=== PATIENT | female | born 1965 | race Caucasian/White ===

== ENCOUNTER 2017-11-12 23:21 | Emergency (ER) | payer MEDICAID ==
[~2017-11-12] VITALS: Ht 162.6 cm; Wt 50.0 kg
[~2017-11-12 23:21] MED LIST: ADV50250 IH; ASTNS; CLON-527 PO; ESCI20TA29 PO; ESTR1TAB23 PO; LEVA15HF4 IH; LOSA1TAB39 PO; NORCO10T PO; PANT40TA39 PO; VALA-7 PO
[2017-11-13] MEDS: normal saline 1000ML IV soln IVB ONE (00:43)
[2017-11-13] MEDS: ketorolac trometh. 30mg/ml inj. IV ONE (00:47)
[2017-11-13 00:49] VITALS: BP 149/96
[2017-11-13] MEDS: SUMAtriptan succ. 6 MG/0.5ml vial SQ ONE (00:57)
== END 2017-11-13 01:31 | disposition home or self-care (01) ==
LOC: ER 23:22
DX: G43.909 Migraine, unspecified, not intractable, without status migrainosus (principal); I10 Essential (primary) hypertension; K21.9 Gastro-esophageal reflux disease without esophagitis; G89.29 Other chronic pain; F41.9 Anxiety disorder, unspecified; F31.9 Bipolar disorder, unspecified; Z88.0 Allergy status to penicillin; Z88.2 Allergy status to sulfonamides; Z88.8 Allergy status to other drugs, medicaments and biological substances; Z88.4 Allergy status to anesthetic agent; Z88.1 Allergy status to other antibiotic agents; Z91.040 Latex allergy status
CPT/HCPCS: 96361; 96372; 96374; 99284; J1885; J3030; J7030

== ENCOUNTER 2017-11-18 12:35 | Emergency (ER) | payer MEDICAID ==
[2017-11-18 14:22] VITALS: BP 124/74
[2017-11-18] MEDS ORDERED: CLON1TAB4 PO (22:57)
[2017-11-18] MEDS ORDERED: MONT10TA24 PO (23:05)
[2017-11-18] MEDS ORDERED: ACYC-202 PO (23:05)
[2017-11-19] MEDS ORDERED: CLON1TAB4 PO (01:29)
== END 2017-11-18 14:25 | disposition home or self-care (01) ==
LOC: ER 12:35
DX: G43.909 Migraine, unspecified, not intractable, without status migrainosus (principal); I10 Essential (primary) hypertension; K21.9 Gastro-esophageal reflux disease without esophagitis; F17.200 Nicotine dependence, unspecified, uncomplicated; Z88.8 Allergy status to other drugs, medicaments and biological substances; Z88.6 Allergy status to analgesic agent; Z88.1 Allergy status to other antibiotic agents; Z91.040 Latex allergy status; Z88.0 Allergy status to penicillin
CPT/HCPCS: 36415; 71045; 80329; 99285

== ENCOUNTER 2017-11-18 21:12 | Emergency (ER) | payer MEDICAID ==
[~2017-11-18] VITALS: Ht 162.6 cm; Wt 47.0 kg
[2017-11-18 21:43] LABS: URINE HCG NEGATIVE (NEG)
[2017-11-18 21:54] LABS: BASOPHILS % (AUTO) 0.7 % (0-1); EOSINOPHILS # (AUTO) 0.1 X10'3 (0-0.9); EOSINOPHILS % (AUTO) 1.8 % (0-6); HEMATOCRIT 40.5 % (35.0-45.0); HEMOGLOBIN 13.9 g/dl (12.0-16.0); LYMPHOCYTES # (AUTO) 2.6 X10'3 (1.1-4.8); LYMPHOCYTES % (AUTO) 48.1 % (21-51); MEAN CORPUSCULAR HEMOGLOBIN 32.2 PG (27.0-31.0); MEAN CORPUSCULAR HGB CONC 34.4 % (33.0-36.5); MEAN CORPUSCULAR VOLUME 93.7 FL (78-98); MEAN PLATELET VOLUME 7.4 FL (7.4-10.4); MONOCYTES # (AUTO) 0.5 X10'3 (0-0.9); MONOCYTES % (AUTO) 9.1 % (2-12); NEUTROPHILS # (AUTO) 2.2 X10'3 (1.8-7.7); NEUTROPHILS % (AUTO) 40.3 % (42-75); PLATELET COUNT 244 X10'3 (140-440); RED BLOOD COUNT 4.32 X10'6 (4.20-5.60); RED CELL DISTRIBUTION WIDTH 13.8 % (11.5-14.5); WHITE BLOOD COUNT 5.4 X10'3 (4.5-11.0)
[2017-11-18 21:54] LABS: URINE AMPHETAMINE SCREEN NEGATIVE (Neg); URINE BARBITUATE SCREEN NEGATIVE (Neg); URINE BENZODIAZEPINES SCREEN NEGATIVE (Neg); URINE CANNABINOID SCREEN NEGATIVE (Neg); URINE COCAINE SCREEN NEGATIVE (Neg); URINE METHADONE SCREEN NEGATIVE (Neg); URINE OPIATE SCREEN POSITIVE (Neg); URINE PHENCYCLIDINE SCREEN NEGATIVE (Neg)
[2017-11-18 22:17] LABS: ALANINE AMINOTRANSFERASE 22 U/L (12-78); ALBUMIN 4.4 G/DL (3.4-5.0); ALBUMIN/GLOBULIN RATIO 1.6 (1.1-1.5); ALKALINE PHOSPHATASE 72 IU/L (46-116); ANION GAP 7 (8-16); ASPARTATE AMINO TRANSFERASE 17 U/L (10-37); BILIRUBIN,TOTAL 0.5 MG/DL (0.1-1.0); BLOOD UREA NITROGEN 8 MG/DL (7-18); CALCIUM 8.9 MG/DL (8.5-10.1); CHLORIDE 103 MMOL/L (99-107); GLUCOSE 92 MG/DL (70-104); POTASSIUM 4.2 MMOL/L (3.5-5.1); SODIUM 139 MMOL/L (135-145); TOTAL CARBON DIOXIDE 28.9 MMOL/L (24-32); TOTAL PROTEIN 7.1 G/DL (6.4-8.2); eGFR 58 ML/MIN
[2017-11-18 22:19] LABS: ETHANOL < 0.010 GM/DL (0.0-0.010)
[2017-11-18] MEDS ORDERED: CLON1TAB4 PO (22:57)
[2017-11-18] MEDS ORDERED: ACYC-202 PO (23:05)
[2017-11-18] MEDS ORDERED: MONT10TA24 PO (23:05)
[2017-11-18] MEDS ORDERED: ibuprofen 200mg tablet PO ONE (23:15)
[2017-11-19] MEDS ORDERED: CLON1TAB4 PO (01:29)
[2017-11-19] MEDS: clonazePAM 1mg tablet PO PRN ×2 (02:53→08:58)
[2017-11-19] MEDS: HYDROcodone/acetaminophen 10/325mg tab PO PRN ×3 (06:04→17:07)
[2017-11-19] MEDS ORDERED: non-formulary drug (Fluticasone/Salmeterol* (Advair 250-50 Diskus*) 1 INH) IH SCH (08:00)
[2017-11-19] MEDS ORDERED: montelukast 10mg tablet PO SCH (08:00)
[2017-11-19] MEDS ORDERED: citalopram 20mg tablet PO SCH (08:00)
[2017-11-19] MEDS ORDERED: pantoprazole 40mg Tablet.DR PO SCH (08:00)
[2017-11-19] MEDS ORDERED: estradiol 1mg tablet PO SCH (08:00)
[2017-11-19] MEDS ORDERED: losartan 50mg tablet PO SCH (08:00)
[2017-11-19] MEDS ORDERED: HYDROchlorothiazide 25mg tablet PO SCH (08:00)
[2017-11-19 13:58] LABS: CLARITY,URINE SLIGHTLY CLOUDY (Clear); COLOR,URINE STRAW (Yellow); GLUCOSE, URINE NEGATIVE (Neg); KETONES,URINE NEGATIVE (Neg); LEUKOCYTE ESTERASE ,URINE NEGATIVE (Neg); NITRITES, URINE NEGATIVE (Neg); OCCULT BLOOD,URINE SMALL (Neg); PROTEIN,URINE NEGATIVE (Neg); UROBILINOGEN,URINE 0.2 E.U/dL (0.2-1.0)
[2017-11-19 13:59] LABS: UA COLLECTION TYPE VOIDED
[2017-11-19 14:11] LABS: BACTERIA,URINE FEW /HPF (Neg); SQUAMOUS EPITHELIAL CELL,UR MANY /LPF (FEW)
[2017-11-19 14:12] LABS: TRANSITIONAL EPI CELLS,URINE FEW /HPF; WBC,URINE 0-4 /HPF (0-4)
[2017-11-19 17:52] VITALS: BP 144/89
[2017-11-19] MEDS ORDERED: acyclovir 200 MG capsule PO SCH (21:00)
== END 2017-11-19 21:55 ==
LOC: ER 21:12
DX: R45.851 Suicidal ideations (principal); I10 Essential (primary) hypertension; K21.9 Gastro-esophageal reflux disease without esophagitis; G89.29 Other chronic pain; R51 Headache; F41.9 Anxiety disorder, unspecified; Z90.49 Acquired absence of other specified parts of digestive tract; Z90.710 Acquired absence of both cervix and uterus; Z88.2 Allergy status to sulfonamides; Z88.0 Allergy status to penicillin; Z88.1 Allergy status to other antibiotic agents; Z88.5 Allergy status to narcotic agent; Z91.040 Latex allergy status
CPT/HCPCS: 36415; 70450; 80053; 80305; 80320; 81001; 81025; 84443; 85025; 99285

== ENCOUNTER 2021-08-06 07:39 | Inpatient (IN) | payer MEDICAID ==
[2021-07-30 15:04] LABS: BASOPHILS % (AUTO) 0.5 % (0-1); EOSINOPHILS # (AUTO) 0.2 X10'3 (0-0.9); EOSINOPHILS % (AUTO) 2.7 % (0-6); LYMPHOCYTES # (AUTO) 2.7 X10'3 (1.1-4.8); LYMPHOCYTES % (AUTO) 43.5 % (21-51); MEAN CORPUSCULAR HEMOGLOBIN 31.3 PG (27.0-31.0); MEAN CORPUSCULAR HGB CONC 33.4 g/dL (33.0-36.5); MEAN CORPUSCULAR VOLUME 93.7 FL (78-98); MEAN PLATELET VOLUME 7.6 FL (7.4-10.4); MONOCYTES # (AUTO) 0.6 X10'3 (0-0.9); MONOCYTES % (AUTO) 9.9 % (2-12); NEUTROPHILS # (AUTO) 2.7 X10'3 (1.8-7.7); NEUTROPHILS % (AUTO) 43.4 % (42-75); PRE OP HEMATOCRIT 37.9 % (35.0-45.0); PRE OP HEMOGLOBIN 12.7 g/dL (12.0-16.0); PRE OP PLATELET COUNT 299 X10'3 (140-440); RED BLOOD COUNT 4.05 X10'6 (4.20-5.60); RED CELL DISTRIBUTION WIDTH 14.3 % (11.5-14.5)
[2021-07-30 15:20] LABS: ALBUMIN 3.5 G/DL (3.4-5.0); ALBUMIN/GLOBULIN RATIO 1.1 (1.1-1.5); ALKALINE PHOSPHATASE 83 IU/L (46-116); BLOOD UREA NITROGEN 15 MG/DL (7-18); BUN/CREATININE RATIO 15.3 (6.6-38.0); CALCIUM 8.4 MG/DL (8.5-10.1); CHLORIDE 103 MMOL/L (99-107); CREATININE 0.98 MG/DL (0.40-0.90); PRE OP ALT 18 U/L (30-65); PRE OP ANION GAP 5 (8-16); PRE OP AST 13 U/L (10-37); PRE OP BILIRUB, TOTAL 0.3 MG/DL (0.0-1.0); PRE OP GLUCOSE 104 MG/DL (70-104); PRE OP POTASSIUM 4.2 MMOL/L (3.4-5.1); PRE OP SODIUM 139 MMOL/L (135-145); TOTAL CARBON DIOXIDE 30.8 MMOL/L (24-32); TOTAL PROTEIN 6.8 G/DL (6.4-8.2); eGFR 58 ML/MIN
[2021-08-06] VITALS (26 sets, daily range): BP systolic 111–161; BP diastolic 70–106
[~2021-08-06] VITALS: Ht 162.6 cm; Wt 58.2 kg
[~2021-08-06 07:39] MED LIST changes: +ACYCLOVIR PO; -ADV50250 IH; -ASTNS; -ESCI20TA29 PO; +ESTR1TAB19 PO; -ESTR1TAB23 PO; +HYDR-3972 PO; -LEVA15HF4 IH; -LOSA1TAB39 PO; +LOSA25TA96 PO; +MONT10TA32 PO; -NORCO10T PO; +PANT-47 PO; -PANT40TA39 PO; +TRAZ150T78 PO; -VALA-7 PO; +VANCOMYCIN INJ 1000 MG in NORMAL SALINE 250ml IV.SOLN IV ONE; +ceFAZolin 2gm in dextrose, iso 50 ML IV ONE; +famotidine 20mg tablet PO ONE; +ringers solution, lacted 1,000 ML IV SCH; +tranexamic acid 650mg tablet PO ONE
[2021-08-06] MEDS ORDERED: ROPIVAcaine 0.5% (5mg/ml) 30ml vial ONE ×2 (09:36→10:11)
[2021-08-06] MEDS ORDERED: ketorolac trometh. 30mg/ml inj. ONE (09:36)
[2021-08-06] MEDS ORDERED: fentaNYL/PF 50MCG/1 ML 2ML syringe ONE (10:09)
[2021-08-06] MEDS ORDERED: LIDOcaine 1%/PF 5ML 10 MG/ML VIAL ONE (10:11)
[2021-08-06] MEDS ORDERED: MIDAZolam 1 MG/ML 5ML VIAL ONE (10:11)
[2021-08-06] MEDS ORDERED: propofol inj 20 ML IV ONE (10:11)
[2021-08-06] MEDS ORDERED: morphine 4 MG/ML inj SYRINge IV PRN (11:10)
[2021-08-06] MEDS ORDERED: ROPIVAcaine 0.2% (10 MG/5 ML) BOLUS INJECTION INTERSCALE PRN (11:10)
[2021-08-06] MEDS ORDERED: meperidine/PF 25mg/ml syringe IV PRN ×3 (11:10)
[2021-08-06] MEDS ORDERED: ondansetron/PF 4mg/2ml inj IV PRN ×2 (11:10→12:40)
[2021-08-06] MEDS ORDERED: morphine 2 MG/ML inj. syringe IV PRN (11:10)
[2021-08-06] MEDS ORDERED: proCHLORperazine 10 MG/2 ml inj IV PRN (11:10)
[2021-08-06] MEDS ORDERED: ringers solution, lacted 1,000 ML IV SCH (11:10)
[2021-08-06] MEDS ORDERED: ketamine 50mg/5ml syringe ONE (11:29)
[2021-08-06] MEDS ORDERED: ePHEDrine 50MG/ML INJ. ONE (11:54)
[2021-08-06] MEDS ORDERED: acetaminophen 1,000mg/100ml IV 100 ML IV ONE (11:54)
[2021-08-06] MEDS ORDERED: ondansetron/PF 4mg/2ml inj ONE (11:54)
[2021-08-06] MEDS ORDERED: dexamethasone sod phosphate 4mg/ml inj. ONE (11:54)
--- NOTE | 2021-08-06 12:20 | NUR ---
PT ARRIVED FROM OR VIA BED, DR. STRAUSS, ANESTHESIA ACCOMPANYING-REPORT GIVEN, PT WAKING UP, VSS, PIV 20G TO LEFT HAND-LR RUNNING AT 100ML/HR, SHOULDER WRAP WITH ICE TO RIGHT SHOULDER-CDI, ARM IN SLING, FINGERS NUMB AND UNABLE TO MOVE YET D/T BLOCK, CSM-INTACT +CAP REFILL , DENIES PAIN, SCDS ON
[2021-08-06] MEDS ORDERED: HYDROmorphone inj. 0.5 MG/0.5 ML DISP.SYRIN IV PRN (12:40)
[2021-08-06] MEDS ORDERED: bisacodyl 10mg suppository rectal RC PRN (12:40)
[2021-08-06] MEDS ORDERED: magnesium hydroxide 30ml (MOM) UD suspension PO PRN (12:40)
[2021-08-06] MEDS ORDERED: diphenhydrAMINE 25mg capsule PO PRN ×2 (12:40)
[2021-08-06] MEDS ORDERED: oxyCODONE IR 5mg (immed. release) tablet PO PRN ×2 (12:40)
[2021-08-06] MEDS ORDERED: acetaminophen 325mg tablet PO PRN (12:40)
[2021-08-06] MEDS: ROPIVAcaine 0.2%/PF PUMP/bolus 545 ML INTERSCALE SCH (12:59)
[2021-08-06] MEDS: clonazePAM 1mg tablet PO SCH ×2 (13:00→21:10)
[2021-08-06] MEDS: gabapentin 300mg capsule PO SCH ×2 (13:00→21:00)
[2021-08-06] MEDS: potassium cl 20mEq in 1/2 NS 1,000 ML IV SCH ×2 (13:27→21:15)
--- NOTE | 2021-08-06 13:48 | NUR ---
PT RESTING COMFORTABLY, DENIES PAIN, VSS, EATING LUNCH, ON-Q PUMP ATTACHED AT 4ML/HR PER PT REQUEST-EDUCATED ON USE, RIGHT SHOULDER DSRG-CDI, ICE IN PLACE, ARM IN SLING, CSM-INTACT, WAITING FOR BED ON FLOOR.
[2021-08-06] MEDS: acetaminophen 325mg tablet PO SCH ×2 (14:00→21:09)
--- NOTE | 2021-08-06 16:50 | NUR ---
PT HAS BEEN RESTING QUIETLY, DENIES PAIN AT SHOULDER SITE BUT FEELS STIFF ALL OVER-DOES HAVE HX OF CHRONIC PAIN, ASKED FOR ON-Q TO BE TURNED UP, INCREASED TO 8ML/HR. SHOULDER DRSG TO RIGHT SIDE-CDI, WITH POWDERPACK AND WRAP IN PLACE, CSM-INTACT, ABLE TO WIGGLE FINGERS BUT STILL DIMINISHED SENSATION FROM BLOCK, PT WAS ABLE TO GET UP TO BSC TO VOID W/O DIFFICULTY, PIV TO LEFT HAND 20G RUNNING AT 125ML/HR WITH 1/2NS WITH 20MEQ KCL PER DR ORDER, REPORT CALLED TO CAROLINE GIBBS ON SURGICAL FLOOR-ALL QUESTIONS ANSWERED, PT TAKEN WITH ALL BELONGINGS TO ROOM 340A, BED LOW AND LOCKED, GIVEN CALL LIGHT AND HOOKED UP TO MONITORS, CHART LEFT AT DESK, STAFF AWARE OF PT ARRIVAL.
--- NOTE | 2021-08-06 17:00 | NUR ---
Patient in room PAS IN 901. I have received report from DAVIS GIBBS and had the opportunity to ask questions and assume patient care.
--- NOTE | 2021-08-06 18:04 | NUR ---
contacted pharmacy at 1700 said they would send ancef up. no ancef still will let filter filler know.
[2021-08-06] MEDS: HYDROcodone/acetaminophen 10/325mg tab PO PRN (18:09)
--- NOTE | 2021-08-06 18:30 | NUR ---
Patient in room REJI 340. I have received report from MALLORIE GIBBS and had the opportunity to ask questions and assume patient care.
[2021-08-06] MEDS: ceFAZolin/D5W- 1GM premix 50 ML IV SCH (18:36)
[2021-08-06] MEDS ORDERED: vancomycin/NS 1 GM ADD-VANTAGE 250 ML IV SCH (20:00)
[2021-08-06] MEDS ORDERED: traZODone 150mg tablet PO SCH (21:00)
[2021-08-06] MEDS ORDERED: sennosides 8.6mg tablet PO SCH (21:00)
[2021-08-06] MEDS: HYDROmorphone 1 mg/ml syringe IV PRN (23:49)
[2021-08-07] VITALS: BP 151/96
[2021-08-07] MEDS: ceFAZolin/D5W- 1GM premix 50 ML IV SCH (00:35)
[2021-08-07] MEDS: acetaminophen 325mg tablet PO SCH ×2 (02:40→07:20)
[2021-08-07] MEDS: HYDROmorphone 1 mg/ml syringe IV PRN (05:08)
[2021-08-07] MEDS: potassium cl 20mEq in 1/2 NS 1,000 ML IV SCH (05:09)
[2021-08-07 05:14] LABS: BASOPHILS % (AUTO) 0.1 % (0-1); EOSINOPHILS % (AUTO) 0 % (0-6); HEMATOCRIT 30.8 % (35.0-45.0); HEMOGLOBIN 10.6 g/dl (12.0-16.0); LYMPHOCYTES # (AUTO) 1.4 X10'3 (1.1-4.8); LYMPHOCYTES % (AUTO) 12.8 % (21-51); MEAN CORPUSCULAR HEMOGLOBIN 31.8 PG (27.0-31.0); MEAN CORPUSCULAR HGB CONC 34.4 g/dL (33.0-36.5); MEAN CORPUSCULAR VOLUME 92.3 FL (78-98); MEAN PLATELET VOLUME 7.5 FL (7.4-10.4); MONOCYTES # (AUTO) 1.1 X10'3 (0-0.9); MONOCYTES % (AUTO) 9.9 % (2-12); NEUTROPHILS # (AUTO) 8.6 X10'3 (1.8-7.7); NEUTROPHILS % (AUTO) 77.2 % (42-75); PLATELET COUNT 268 X10'3 (140-440); RED BLOOD COUNT 3.34 X10'6 (4.20-5.60); RED CELL DISTRIBUTION WIDTH 14.3 % (11.5-14.5); WHITE BLOOD COUNT 11.2 X10'3 (4.5-11.0)
[2021-08-07 05:23] LABS: ANION GAP 5 (8-16); CHLORIDE 108 MMOL/L (99-107); POTASSIUM 4.6 MMOL/L (3.5-5.1); SODIUM 140 MMOL/L (135-145); TOTAL CARBON DIOXIDE 27.4 MMOL/L (24-32)
[2021-08-07 06:00] VITALS: BP 148/99
--- NOTE | 2021-08-07 06:30 | NUR ---
Problems reprioritized. Patient report given, questions answered & plan of care reviewed with MARIANNE GIBBS.
[2021-08-07] MEDS: HYDROcodone/acetaminophen 10/325mg tab PO PRN ×2 (07:26→11:46)
[2021-08-07] MEDS: gabapentin 300mg capsule PO SCH ×2 (07:26→13:02)
[2021-08-07] MEDS: clonazePAM 1mg tablet PO SCH ×2 (07:28→13:02)
[2021-08-07] MEDS ORDERED: acyclovir 200 MG capsule PO SCH (08:00)
[2021-08-07] MEDS ORDERED: montelukast 10mg tablet PO SCH (08:00)
[2021-08-07] MEDS ORDERED: pantoprazole 40mg Tablet.DR PO SCH (08:00)
[2021-08-07] MEDS ORDERED: estradiol 1mg tablet PO SCH (08:00)
[2021-08-07] MEDS ORDERED: losartan 25mg tablet PO SCH (08:00)
[2021-08-07] MEDS ORDERED: aspirin 325mg tablet PO SCH (08:30)
[2021-08-07 10:00] VITALS: BP 146/95
--- NOTE | 2021-08-07 12:24 | NUR ---
Primary Joint consult: Pt s/p reverse arthroplasty of R shoulder. Provided pt w/ written and verbal high protein diet education w/ RD contact info. Pt receptive of information, will continue to monitor. Addendum: 08/07/21 at [address] Amended: Links added.
[2021-08-07] MEDS: ROPIVAcaine 0.2%/PF PUMP/bolus 545 ML INTERSCALE SCH (12:53)
[2021-08-07] MEDS ORDERED: celeCOXIB 100mg capsule PO SCH (20:00)
[2021-08-08] MEDS ORDERED: acetaminophen 325mg tablet PO PRN (12:40)
== END 2021-08-07 13:35 | disposition home or self-care (01) | DRG 322 ==
LOC: PAS IN 07:39 → UNDOADMIN 07:39 → PAS IN 12:44 → SUR 3N 17:00
PROVIDERS: ADMIT Orthopaedic Surgery; ATTEND Orthopaedic Surgery
PROC: 0RRJ00Z Replacement of Right Shoulder Joint with Reverse Ball and Socket Synthetic Substitute, Open Approach (ICD-10-PCS; principal; 2021-08-06 10:25)
DX: M19.011 Primary osteoarthritis, right shoulder (principal); F25.9 Schizoaffective disorder, unspecified; G43.709 Chronic migraine without aura, not intractable, without status migrainosus; M51.37 Other intervertebral disc degeneration, lumbosacral region; M47.816 Spondylosis without myelopathy or radiculopathy, lumbar region; F32.A Depression, unspecified; F41.9 Anxiety disorder, unspecified; Z20.822 Contact with and (suspected) exposure to COVID-19; M47.812 Spondylosis without myelopathy or radiculopathy, cervical region; M75.121 Complete rotator cuff tear or rupture of right shoulder, not specified as traumatic; Z88.1 Allergy status to other antibiotic agents; Z88.8 Allergy status to other drugs, medicaments and biological substances; Z88.5 Allergy status to narcotic agent; Z88.2 Allergy status to sulfonamides; Z88.4 Allergy status to anesthetic agent; Z91.040 Latex allergy status; Z91.048 Other nonmedicinal substance allergy status; Z82.49 Family history of ischemic heart disease and other diseases of the circulatory system; Z80.52 Family history of malignant neoplasm of bladder; Z87.891 Personal history of nicotine dependence; Z98.1 Arthrodesis status; Z90.710 Acquired absence of both cervix and uterus; Z87.820 Personal history of traumatic brain injury
CPT/HCPCS: 36415; 73030; 80051; 80053; 85025; 87081; 97110; 97116; 97161; 97530; A4565; A4618; A7000; C1776; G0378; J0131; J0690; J1100; J1170; J1885; J2250; J2405; J2704; J2795; J3010; J3370; J3480; J7120; U0003; U0005

== ENCOUNTER 2022-10-23 13:29 | Emergency (ER) | payer MEDICAID ==
[~2022-10-23] VITALS: Ht 162.6 cm; Wt 50.0 kg
[~2022-10-23 13:29] MED LIST changes: +MONT-40 PO; -MONT10TA32 PO; -VANCOMYCIN INJ 1000 MG in NORMAL SALINE 250ml IV.SOLN IV ONE; -ceFAZolin 2gm in dextrose, iso 50 ML IV ONE; -famotidine 20mg tablet PO ONE; -ringers solution, lacted 1,000 ML IV SCH; -tranexamic acid 650mg tablet PO ONE
[2022-10-23 13:48] VITALS: BP 172/116
[2022-10-23 14:59] LABS: CLARITY,URINE CLEAR (Clear); COLOR,URINE YELLOW (Yellow); GLUCOSE, URINE NEGATIVE (Neg); KETONES,URINE TRACE mg/dl (Neg); LEUKOCYTE ESTERASE ,URINE NEGATIVE (Neg); NITRITES, URINE NEGATIVE (Neg); OCCULT BLOOD,URINE MODERATE (Neg); PROTEIN,URINE NEGATIVE (Neg); UROBILINOGEN,URINE 0.2 E.U/dL (0.2-1.0)
[2022-10-23 15:14] LABS: UA COLLECTION TYPE CLN CATCH MIDSTREAM
[2022-10-23 15:15] LABS: MUCUS STRANDS NONE SEEN /LPF (Neg); RBC,URINE 0-2 /HPF (0-2); SQUAMOUS EPITHELIAL CELL,UR MANY /LPF (FEW); WBC,URINE 0-4 /HPF (0-4)
[2022-10-23 15:16] LABS: BACTERIA,URINE 1+ /HPF (Neg)
[2022-10-23] MEDS ORDERED: CEPH250T PO (15:27)
== END 2022-10-23 15:41 | disposition home or self-care (01) ==
LOC: ER 13:29
DX: R30.0 Dysuria (principal); G43.909 Migraine, unspecified, not intractable, without status migrainosus; I10 Essential (primary) hypertension; K21.9 Gastro-esophageal reflux disease without esophagitis; G89.29 Other chronic pain; M54.50 Low back pain, unspecified; F31.9 Bipolar disorder, unspecified; Z88.0 Allergy status to penicillin; Z88.2 Allergy status to sulfonamides; Z91.041 Radiographic dye allergy status; Z88.5 Allergy status to narcotic agent; Z88.8 Allergy status to other drugs, medicaments and biological substances; Z90.49 Acquired absence of other specified parts of digestive tract; Z90.710 Acquired absence of both cervix and uterus; Z98.890 Other specified postprocedural states
CPT/HCPCS: 81001; 99283

== ENCOUNTER 2023-02-14 09:03 | Emergency (ER) | payer MEDICAID ==
[~2023-02-14] VITALS: Ht 157.5 cm; Wt 50.0 kg
[~2023-02-14 09:03] MED LIST changes: +LORA-269 PO; +ORPH100T4 PO
[2023-02-14 09:20] VITALS: BP 183/112
[2023-02-14] MEDS ORDERED: AMOX-580 PO (10:56)
== END 2023-02-14 11:11 | disposition home or self-care (01) ==
LOC: ER 09:04
DX: J32.9 Chronic sinusitis, unspecified (principal); G43.909 Migraine, unspecified, not intractable, without status migrainosus; K21.9 Gastro-esophageal reflux disease without esophagitis; I10 Essential (primary) hypertension; G89.29 Other chronic pain; F41.9 Anxiety disorder, unspecified; F31.9 Bipolar disorder, unspecified; Z90.49 Acquired absence of other specified parts of digestive tract; Z98.890 Other specified postprocedural states; Z90.710 Acquired absence of both cervix and uterus; Z88.2 Allergy status to sulfonamides; Z88.0 Allergy status to penicillin; Z88.1 Allergy status to other antibiotic agents; Z88.5 Allergy status to narcotic agent; Z91.040 Latex allergy status; Z79.899 Other long term (current) drug therapy
CPT/HCPCS: 71045; 99283

== ENCOUNTER 2023-09-01 11:55 | Emergency (ER) | payer MEDICAID ==
[~2023-09-01] VITALS: Ht 162.6 cm; Wt 56.9 kg
[~2023-09-01 11:55] MED LIST changes: +LOSA-415 PO; -LOSA25TA96 PO
[2023-09-01 11:57] VITALS: BP 184/129; PULSE 108; RESP 16; TEMP 98.5; O2SAT 96
--- NOTE | 2023-09-01 13:11 | NUR ---
mse proivider assessment pior to nursing assessment, dc instructions reviewed with provider
== END 2023-09-01 17:01 | disposition home or self-care (01) ==
LOC: ER 11:57
DX: J32.9 Chronic sinusitis, unspecified (principal); G43.909 Migraine, unspecified, not intractable, without status migrainosus; I10 Essential (primary) hypertension; K21.9 Gastro-esophageal reflux disease without esophagitis; Z88.2 Allergy status to sulfonamides; Z88.0 Allergy status to penicillin; Z91.041 Radiographic dye allergy status; Z88.5 Allergy status to narcotic agent; Z91.040 Latex allergy status; Z79.899 Other long term (current) drug therapy; Z90.49 Acquired absence of other specified parts of digestive tract; Z90.710 Acquired absence of both cervix and uterus
CPT/HCPCS: 99281